=== PATIENT | female | born 1965 | race African-American/Black ===

== ENCOUNTER 2017-01-22 08:29 | Emergency (ER) | payer OTHER ==
[~2017-01-22] VITALS: Ht 165.1 cm; Wt 96.6 kg
[2017-01-22 08:39] VITALS: BP 152/87
--- NOTE | 2017-01-22 08:48 | NUR ---
Patient ambulated to bed 06.
--- NOTE | 2017-01-22 08:52 | NUR ---
PATIENT PRESENTS TO ED WITH LEFT SIDED FACIAL SWELLING X2 DAYS--DENIES INJURY . PT STATES HAS DENTAL ISSUES ON LEFT SIDE---HAS TO WAIT FOR DENTAL APPROVAL TO REMOVE SEVERAL TEETH--C/O ALSO OF PRURITUS . DENIES D; SKIN IS PINK/WARM/DRY; AAOX4 WITH EVEN AND STEADY GAIT; LUNGS CLEAR BL; HR EVEN AND REGULAR; PT DENIES ANY FEVER, CP, SOB, OR COUGH AT THIS TIME; PATIENT STATES PAIN OF 8/10 AT THIS TIME; VSS; PATIENT POSITIONED FOR COMFORT; HOB ELEVATED; BEDRAILS UP X2; BED DOWN. ER MD MADE AWARE OF PT STATUS.
--- NOTE | 2017-01-22 09:02 | NUR ---
AWAITING TO BE SEEN BY ERMD.PATIENT IN NO DISTRESS
--- NOTE | 2017-01-22 09:13 | NUR ---
Dr. Otto evaluating patient at bedside.
[2017-01-22] MEDS ORDERED: AMOXICILLIN 500 MG CAP PO ONE (09:15)
[2017-01-22] MEDS ORDERED: HYDROcodone/APAP 5/325 MG 1 TAB TAB PO ONE (09:15)
--- NOTE | 2017-01-22 09:30 | NUR ---
Patient discharged with v/s stable. Written and verbal after care instructions given and explained. Patient alert, oriented and verbalized understanding of instructions. Ambulatory with steady gait. All questions addressed prior to discharge. ID band removed. Patient advised to follow up with PMD. Rx of AMOXICILLIN/MOTRIN/NORCO given. Patient educated on indication of medication including possible reaction and side effects. Opportunity to ask questions provided and answered.
[2017-01-22 09:31] VITALS: BP 137/89
== END 2017-01-22 09:30 | disposition home or self-care (01) ==
LOC: MED 08:29
DX: K04.7 Periapical abscess without sinus (principal); I10 Essential (primary) hypertension
CPT/HCPCS: 99283